=== PATIENT | male | born 1985 | race Caucasian/White ===

== ENCOUNTER 2022-07-07 20:25 | Emergency (ER) | payer BC ==
[~2022-07-07] VITALS: Ht 182.9 cm; Wt 88.5 kg
[2022-07-07 20:52] VITALS: BP_SYST 122
[2022-07-07] MEDS ORDERED: NAPR-1172 PO (22:32)
[2022-07-07 22:38] VITALS: BP_SYST 122
== END 2022-07-07 22:39 | disposition home or self-care (01) ==
LOC: SED 20:25
DX: S43.402A Unspecified sprain of left shoulder joint, initial encounter (principal); Z79.899 Other long term (current) drug therapy; V00.131A Fall from skateboard, initial encounter; Y93.51 Activity, roller skating (inline) and skateboarding; Y92.89 Other specified places as the place of occurrence of the external cause; Y99.8 Other external cause status
CPT/HCPCS: 73030; 99283